=== PATIENT | female | born 1980 | race Caucasian/White ===

== ENCOUNTER 2018-04-16 13:03 | Emergency (ER) | payer SELFPAY ==
[~2018-04-16] VITALS: Ht 162.6 cm; Wt 54.4 kg
--- NOTE | 2018-04-16 13:31 | ED Cough/URI ---
General Chief Complaint: Cough/Cold/Flu Symptoms Stated Complaint: CHEST CONGESTION Source: patient Exam Limitations: no limitations History of Present Illness Date Seen by Provider: Apr 16, 2018 Time Seen by Provider: 13:29 Initial Comments To ER with a two-week history of pressure beside her nose bilaterally, nasal congestion, headaches, chills, cough that is productive occasionally. Timing/Duration: constant Severity/Quality: productive cough Associated Symptoms: cough, fever/chills, nasal congestion, nasal drainage Allergies and Home Medications Allergies Coded Allergies: Penicillins (Verified Allergy, Unknown, 03/17/07) Home Medications Hydrocodone Bit/Acetaminophen 1 Each Tablet, 1 EACH PO Q4H PRN for PAIN Prescribed by: SHILO HUBER on 11/08/15 0202 Patient Home Medication List Home Medication List Reviewed: Yes Review of Systems Review of Systems Constitutional: see HPI, chills EENTM: see HPI, nose congestion Respiratory: see HPI, cough Cardiovascular: no symptoms reported Genitourinary: no symptoms reported Musculoskeletal: no symptoms reported Skin: no symptoms reported Psychiatric/Neurological: No Symptoms Reported Past Imsovgz-Tspajx-Slnyow Hx Patient Social History Type Used: Cigarettes Recent Foreign Travel: No Contact w/Someone Who Travel: No Recent Hopitalizations: No Immunizations Up To Date Tetanus Booster (TDap): Unknown Seasonal Allergies Seasonal Allergies: No Past Medical History Reproductive Disorders: No Adverse Reaction/Blood Tranf: No Family Medical History No Pertinent Family Hx Physical Exam Capillary Refill : Height: 5'4" Weight: 125lbs. oz. 56.050616ko; BMI Method:Stated General Appearance: WD/WN, no apparent distress Eyes: Bilateral Eye Normal Inspection, Bilateral Eye PERRL, Bilateral Eye EOMI HEENT: PERRL/EOMI, normal ENT inspection Neck: non-tender, full range of motion Respiratory: no respiratory distress, no accessory muscle use Cardiovascular: regular rate, rhythm, no murmur Gastrointestinal: normal bowel sounds, non tender, soft Neurologic/Psychiatric: alert, normal mood/affect, oriented x 3 Skin: normal color, warm/dry Progress/Results/Core Measures Suspected Sepsis SIRS Temperature: Pulse: Respiratory Rate: Blood Pressure / Mean: Results/Orders My Orders Orders - FIDENCIO BECERRA APRN Chest Pa/Lat (2 View) (04/16/18 13:21) Influenza A And B Antigens (04/16/18 13:21) Vital Signs/I&O Capillary Refill : Departure Impression Primary Impression: Sinusitis Qualified Codes: J01.00 - Acute maxillary sinusitis, unspecified Disposition: HOME, SELF-CARE Condition: Stable Departure-Patient Inst. Decision time for Depature: 13:30 Referrals: NO,LOCAL PHYSICIAN (PCP/Family) Primary Care Physician Patient Instructions: Sinusitis in Adults Add. Discharge Instructions: 1. Antibiotics and steroids as directed. Follow-up with your doctor next week All discharge instructions reviewed with patient and/or family. Voiced understanding. Scripts Prednisone (Prednisone) 20 Mg Tab 40 MG PO DAILY, #8 TAB Prov: FIDENCIO BECERRA APRN 04/16/18 Cefdinir (Cefdinir) 300 Mg Capsule 300 MG PO BID, #20 CAP Prov: FIDENCIO BECERRA APRN 04/16/18 Work/School Note: Work Release Form Date Seen in the Emergency Department: Apr 16, 2018 Return to Work: Apr 18, 2018 FIDENCIO BECERRA APRN Apr 16, 2018 13:31
[2018-04-16 14:07] VITALS: BP 121/81
--- NOTE | 2018-04-16 14:13 | Diagnostic Imaging Report ---
INDICATION: Productive cough, congestion and fever. FINDINGS: The lungs are clear. The heart and vessels are normal. No effusion or pneumothorax. IMPRESSION: No acute-appearing abnormality. Dictated by: Dictated on workstation # [id number]
== END 2018-04-16 13:20 | disposition home or self-care (01) ==
LOC: EDUNIT# 13:03 → ER 13:07
DX: J32.9 Chronic sinusitis, unspecified (principal); Z88.0 Allergy status to penicillin
CPT/HCPCS: 71046; 87804

== ENCOUNTER 2018-11-26 17:57 | Emergency (ER) | payer SELFPAY ==
[~2018-11-26] VITALS: Ht 162.5 cm; Wt 59.1 kg
[~2018-11-26 17:57] MED LIST: ACHD5005 PO; AZIT-21 PO; CEFD300C3 PO; PRD20T PO
--- NOTE | 2018-11-26 18:19 | ED Upper Extremity ---
General Chief Complaint: Upper Extremity Stated Complaint: RT HAND HURTS Nursing Triage Note: PT AMB TO TRIAGE WITH COMPLAINT OF RIGHT HAND PAIN THAT STARTS IN PALM AND RADIATES OUT. STATES STARTED THIS AM. DENIES INJURY. Nursing Sepsis Screen: No Definite Risk Source: patient, other Exam Limitations: no limitations History of Present Illness Date Seen by Provider: Nov 26, 2018 Time Seen by Provider: 18:04 Initial Comments Resents to ER by private conveyance with her significant other chief complaint she woke up this morning around 7 morning with some burning pain in her palmar side of her right hand. She is right-hand dominant. She says the pain sometimes shoots back up towards her elbow. Desire anything to hurt her hand. This thinks maybe slept on it wrong. She has not tried anything yet for this. Allergies and Home Medications Allergies Coded Allergies: Penicillins (Verified Allergy, Unknown, 03/17/07) Home Medications Cefdinir 300 Mg Capsule, 300 MG PO BID Prescribed by: FIDENCIO BECERRA on 04/16/18 1331 Hydrocodone Bit/Acetaminophen 1 Each Tablet, 1 EACH PO Q4H PRN for PAIN Prescribed by: SHILO HUBER on 11/08/15 2329 Prednisone 20 Mg Tab, 40 MG PO DAILY Prescribed by: FIDENCIO BECERRA on 04/16/18 1331 Patient Home Medication List Home Medication List Reviewed: Yes Review of Systems Constitutional: No chills, No fever EENTM: No ear pain, No tearing Musculoskeletal: No back pain, No joint pain Skin: No change in color, No rash Past Ehewqjc-Iajfqc-Qxvnsc Hx Patient Social History Alcohol Use: Denies Use Recreational Drug Use: No Smoking Status: Current Everyday Smoker Type Used: Cigarettes Recent Foreign Travel: No Contact w/Someone Who Travel: No Recent Infectious Disease Expo: No Recent Hopitalizations: No Physical Abuse: No Sexual Abuse: No Mistreated: No Fear: No Immunizations Up To Date Tetanus Booster (TDap): Unknown Seasonal Allergies Seasonal Allergies: No Past Medical History Surgeries: No Respiratory: No Cardiac: No Neurological: No Reproductive Disorders: No Gastrointestinal: No Musculoskeletal: No Endocrine: No Cancer: No Psychosocial: No Integumentary: No Blood Disorders: No Adverse Reaction/Blood Tranf: No Family Medical History No Pertinent Family Hx Physical Exam Vital Signs Vital Signs - First Documented 11/26/18 18:04 Temp 37.0 Pulse 50 Resp 20 B/P (MAP) 119/71 (87) Pulse Ox 99 O2 Delivery Room Air Capillary Refill : Less Than 3 Seconds Height, Weight, BMI Height: 5'4.00" Weight: 120lbs. oz. 54.441845sw; 22.00 BMI Method:Estimated General Appearance: WD/WN, no apparent distress Neck: non-tender, full range of motion, supple, normal inspection Cardiovascular: normal peripheral pulses, regular rate, rhythm, no edema Respiratory: no respiratory distress, no accessory muscle use Shoulder: normal inspection, non-tender, no evidence of injury, normal ROM Elbow/Forearm: normal inspection, no evidence of injury, normal ROM, Right, pain (Pain elicited in the right forearm and hand on Tinel's tap over the ulnar sheath.) Wrist: Yes normal inspection, Yes non-tender, Yes no evidence of injury, Yes normal ROM Hand: normal inspection, non-tender, no evidence of injury, normal ROM, Right Progress/Results/Core Measures Results/Orders Vital Signs/I&O 11/26/18 18:04 Temp 37.0 Pulse 50 Resp 20 B/P (MAP) 119/71 (87) Pulse Ox 99 O2 Delivery Room Air Blood Pressure Mean: 87 Progress Progress Note : Time: 18:16 Progress Note NSAIDs, cock-up splint Departure Impression Primary Impression: Ulnar nerve entrapment syndrome Qualified Codes: G56.21 - Lesion of ulnar nerve, right upper limb Disposition: 01 HOME, SELF-CARE Condition: Stable Departure-Patient Inst. Decision time for Depature: 18:17 Referrals: NO,LOCAL PHYSICIAN (PCP/Family) Primary Care Physician Patient Instructions: Cubital Tunnel Syndrome (DC) Add. Discharge Instructions: The next 2 weeks use naproxen 2 tablets twice daily on a scheduled basis. Alternatively you can use 4 tablets of ibuprofen 3 times a day. Tylenol 1000 mg every 8 hours as needed for pain. Wear the cock-up splint especially to sleep and throughout the day while you're at work to help reduce straining at the level of the wrist. If you're not seeing improvement after 2 weeks then you need to follow up with primary care and discuss next steps of management. All discharge instructions reviewed with patient and/or family. Voiced understanding. Work/School Note: Work Release Form Date Seen in the Emergency Department: Nov 26, 2018 Return to Work: Nov 27, 2018 Restrictions: Need Release from Doctor Other Restrictions Listed Below: Light duty with right upper extremity until 12/10/18. CHERRY HOOD Nov 26, 2018 18:19
[2018-11-26 18:30] VITALS: BP 119/71
== END 2018-11-26 18:30 | disposition home or self-care (01) ==
LOC: EDUNIT# 17:57 → ER 17:59
DX: G56.21 Lesion of ulnar nerve, right upper limb (principal); F17.210 Nicotine dependence, cigarettes, uncomplicated; Z88.0 Allergy status to penicillin; Z79.52 Long term (current) use of systemic steroids
CPT/HCPCS: 99282

== ENCOUNTER 2019-07-31 07:59 | Emergency (ER) | payer SELFPAY ==
[~2019-07-31] VITALS: Ht 162 cm; Wt 59.3 kg
[2019-07-31 08:03] VITALS: BP 125/94
[2019-07-31] MEDS ORDERED: METH750T3 (08:15)
[2019-07-31] MEDS ORDERED: ORPHENADRINE 60 MG/2 ML (NORFLEX) AMP IM STA (08:21)
[2019-07-31] MEDS ORDERED: KETOROLAC 60 MG/2 ML VIAL IM STA (08:21)
--- NOTE | 2019-07-31 08:28 | ED Back Pain ---
General Chief Complaint: Back Problems Stated Complaint: BACK PAIN Nursing Triage Note: PT CO OF UPPER BACK PAIN L SIDE UNDER SHOULDER HAS OLD INJURY THAT HAS FLARED UP, PT STATES HAS BEEN TAKING ROBAXIN W NO RELIEF. RATES PAIN 10/06 Nursing Sepsis Screen: No Definite Risk Source of Information: Patient Exam Limitations: No Limitations History of Present Illness Date Seen by Provider: Jul 31, 2019 Time Seen by Provider: 08:11 Initial Comments Here with pain to the area between the shoulder blade and spine on the left side. She gets this intermittently for the last 8 years after she had shoulder dislocation. States the pain is a little better when she was able to press on it using the corner of the door or wall. States it's hard to take a deep breath. Better when standing and worse when lying on that side. Was seen by her clinic and had x-ray done which did not show any bony involvement. 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 She has not taken any ibuprofen or Tylenol. States Robaxin not really helping. Location: Paraspinous Muscles, Other (rhomboids on the left) Timing/Duration: 3-4 Days Severity: Moderate, Severe Pain/Injury Location: Back Radiation: Other (neck) Method of Injury: Unknown Modifying Factors: Worse With Movement Associated Symptoms: muscle spasms; No fever, No weakness, No lower back pain Allergies and Home Medications Allergies Coded Allergies: Penicillins (Verified Allergy, Unknown, 03/17/07) Patient Home Medication List Home Medication List Reviewed: Yes Review of Systems Constitutional: see HPI; No chills, No fever Respiratory: no symptoms reported Cardiovascular: no symptoms reported Musculoskeletal: back pain, muscle pain, muscle stiffness Skin: no symptoms reported Psychiatric/Neurological: No Symptoms Reported Past Nmpgjkr-Dbnyss-Yeijxi Hx Past Med/Social Hx: Reviewed Nursing Past Med/Soc Hx Patient Social History Alcohol Use: Denies Use Recreational Drug Use: Yes (POT) Smoking Status: Current Everyday Smoker Type Used: Cigarettes Recent Foreign Travel: No Contact w/Someone Who Travel: No Recent Infectious Disease Expo: No Recent Hopitalizations: No Physical Abuse: No Sexual Abuse: No Immunizations Up To Date Tetanus Booster (TDap): Unknown Seasonal Allergies Seasonal Allergies: No Past Medical History Surgeries: No Respiratory: No Cardiac: No Neurological: No Last Menstrual Period: Jul 31, 2019 Reproductive Disorders: No Gastrointestinal: No Musculoskeletal: No Endocrine: No Cancer: No Psychosocial: No Integumentary: No Blood Disorders: No Adverse Reaction/Blood Tranf: No Family Medical History Reviewed Nursing Family Hx No Pertinent Family Hx Physical Exam Vital Signs Vital Signs - First Documented 07/31/19 08:03 Temp 36.8 Pulse 73 Resp 18 B/P (MAP) 125/94 (104) Pulse Ox 97 Capillary Refill : Less Than 3 Seconds Height, Weight, BMI Height: 5'4.00" Weight: 120lbs. oz. 54.113915cu; 22.00 BMI Method:Estimated General Appearance: WD/WN, Mild Distress Neck: Full Range of Motion, Non Tender, Supple Cardiovascular: Regular Rate, Rhythm, No Murmur Respiratory: Lungs Clear, Normal Breath Sounds Back: No Vertebral Tenderness, Muscle Spasm (left upper paraspinous between the shoulder blade and the spine in the area of the rhomboids.) Extremity: Normal Range of Motion, Other (pain to area concern with forward flexion shoulder) Neurologic/Psychiatric: Alert, Oriented x3 Progress/Results/Core Measures Results/Orders My Orders Orders - GABE BRANDT MD Toradol 60 Mg Im (07/31/19 08:21) Norflex 60 Mg Im (07/31/19 08:21) Vital Signs/I&O 07/31/19 08:03 Temp 36.8 Pulse 73 Resp 18 B/P (MAP) 125/94 (104) Pulse Ox 97 Blood Pressure Mean: 104 Progress Progress Note : Progress Note Seen and evaluated. Spasming muscle isolated and pressure applied to break spasm. This did provide some relief. Patient states she actually feels better than she did when she came in. Norflex 60 mg IM and Toradol 60 mg IM ordered. Patient states that she is feeling better. Discharged home with return precau tions. Patient verbalize understanding of instructions and agreement with plan. Departure Impression Primary Impression: Muscle strain of upper back Additional Impression: Rhomboid muscle strain Qualified Codes: S29.012A - Strain of muscle and tendon of back wall of thorax, initial encounter Disposition: 01 HOME, SELF-CARE Condition: Improved Departure-Patient Inst. Decision time for Depature: 08:29 Referrals: NO,LOCAL PHYSICIAN (PCP/Family) Primary Care Physician Patient Instructions: Back Muscle Strain Add. Discharge Instructions: All discharge instructions reviewed with patient and/or family. Voiced understanding. You may take ibuprofen up to 600 mg every 8 hours as needed for pain. You may also take Tylenol/acetaminophen 1000 mg every 8 hours as needed for pain. You may use [id number] Icy Hot with lidocaine patches, Aspercreme with lidocaine patches, Salonpas with lidocaine patches or similar items to area of concern per package directions. Follow-up with your Dr. in a few days for recheck as needed. Return for worse pain, fever, vomiting, weakness, breathing problems or other concerns as needed. GABE BRANDT MD Jul 31, 2019 08:28
== END 2019-07-31 08:33 | disposition home or self-care (01) ==
LOC: EDUNIT# 07:59 → ER 08:01
DX: S29.012A Strain of muscle and tendon of back wall of thorax, initial encounter (principal); F17.210 Nicotine dependence, cigarettes, uncomplicated; Z88.0 Allergy status to penicillin; X50.1XXA Overexertion from prolonged static or awkward postures, initial encounter
CPT/HCPCS: 99284